=== PATIENT | female | born 1965 | race Caucasian/White ===

== ENCOUNTER → 2024-01-07 | Outpatient (CLI) | payer BC ==
[~2024-01-07] MED LIST: ACET-897 PO; ACET1TAB55 PO; ACET500P3 PO; ADV250INH INH; ASPI-527 PO; ASPI325T PO; BAYECHW PO; CALC600T62 PO; CELE20TA PO; CIPR-249 PO; DEXA2TA PO; DEXA4TA PO; FLUC10TA PO; LEVO50TA5 PO; PAXI40TA12 PO; PROT1TAB2 PO; QUET1TAB17 PO; SPIR1CAP INH; SPIRIVA INH; TIOTROPIUM; TOPA50TA PO; TRAZ-186 PO; TREL1AER PO; WELL150T PO; WELLTAB40 PO; XANA0.25 PO
== END ==
LOC: M ONCR 08:38
PROVIDERS: ATTEND General Practice
DX: C79.31 Secondary malignant neoplasm of brain (principal); F17.210 Nicotine dependence, cigarettes, uncomplicated; Z90.710 Acquired absence of both cervix and uterus; Z80.1 Family history of malignant neoplasm of trachea, bronchus and lung; Z79.01 Long term (current) use of anticoagulants; Z79.899 Other long term (current) drug therapy

== ENCOUNTER 2024-01-10 18:35 | Emergency (ER) | payer BC ==
[~2024-01-10] VITALS: Ht 165.1 cm; Wt 74.3 kg
[~2024-01-10 18:35] MED LIST changes: -DEXA2TA PO; -FLUC10TA PO; -QUET1TAB17 PO; -TRAZ-186 PO
[2024-01-10 19:19] LABS: BASO % 0.1 % (0.0-1.0); EOS % 0.1 % (0.0-3.0); HEMATOCRIT 49.7 % (36.0-47.0); HEMOGLOBIN 16.8 g/dl (12.0-15.5); LYMPH # 1.8 10^3/uL (1.5-5.0); LYMPH % 9.3 % (24.0-44.0); MEAN CORPUSCULAR HEMOGLOBIN 31.5 pg (27.0-33.0); MEAN CORPUSCULAR HGB CONC 33.8 g/dl (32.0-36.5); MEAN CORPUSCULAR VOLUME 93.1 fl (80.0-96.0); MONO # 1.2 10^3/uL (0.0-0.8); MONO % 6.6 % (2.0-8.0); NEUTROPHILS # 15.7 10^3/uL (1.5-8.5); NEUTROPHILS % 82.9 % (36.0-66.0); PLATELET COUNT, AUTOMATED 459 10^3/uL (150-450); RED BLOOD COUNT 5.34 10^6/uL (4.00-5.40); WHITE BLOOD COUNT 18.9 10^3/uL (4.0-10.0)
[2024-01-10] MEDS: diphenhydrAMINE 50MG/ML VIAL IV ONE (19:30)
[2024-01-10 19:44] LABS: ALBUMIN 3.6 G/DL (3.2-5.2); ALKALINE PHOSPHATASE 121 U/L (46-116); ALT/SGPT 28 U/L (7.0-40); AST/SGOT 22 U/L (<34); BILIRUBIN,DIRECT 0.1 MG/DL (<0.4); BILIRUBIN,TOTAL 0.4 MG/DL (0.3-1.2); BLOOD UREA NITROGEN 13 MG/DL (9-23); CALCIUM LEVEL 9.5 MG/DL (8.3-10.6); CARBON DIOXIDE LEVEL 26 MMOL/L (20-31); CHLORIDE LEVEL 98 MMOL/L (98-107); GLOMERULAR FILTRATION RATE > 60.0 (>45); GLUCOSE, FASTING 114 MG/DL (74-106); POTASSIUM SERUM 4.4 MMOL/L (3.5-5.1); SODIUM LEVEL 132 MMOL/L (136-145); TOTAL PROTEIN 6.8 G/DL (5.7-8.2)
[2024-01-10] MEDS: ACETAMINOPHEN *IV* 1,000 MG in IV 1 EA IV ONE (19:49)
[2024-01-10] MEDS: METOCLOPRAMIDE INJ 10MG/2ML VIAL IV ONE (19:49)
[2024-01-10] MEDS: NS 1,000 ML IV ONE (19:49)
[2024-01-10] MEDS ORDERED: ISOVUE-370 76% 100ML VIAL As Ordered ONE (19:51)
[2024-01-10 20:15] LABS: CK-MB VALUE MASS 7.6 NG/ML (<3.6)
[2024-01-10 20:17] VITALS: BP 164/111
[2024-01-10] MEDS: METOPROLOL 5 MG/5 ML VIAL IV PRN (20:17)
[2024-01-10] MEDS: METOPROLOL TART 25 MG TABLET PO ONE (20:17)
[2024-01-10 20:21] LABS: CPK CREATINE PHOSPHOKINASE 66 U/L (34-145); MB/CK RELATIVE INDEX 11.51 (< OR =4)
[2024-01-10 20:24] LABS: PROCALCITONIN <0.04 ng/ml
[2024-01-10 21:51] LABS: CK-MB VALUE MASS 7.3 NG/ML (<3.6)
[2024-01-10 21:52] LABS: MB/CK RELATIVE INDEX 11.77 (< OR =4)
[2024-01-10] MEDS ORDERED: HEPARIN DRIP 25,000 UNITS in IV 1 EA IV SCH (22:25)
[2024-01-10] MEDS ORDERED: HEPARIN SOD (PORCINE) 5000UNITS/ML 1ML VIAL/SYRINGE IV PRN (22:25)
[2024-01-10] MEDS: ONDANSETRON 4MG 2ML VIAL IV ONE (22:36)
[2024-01-10] MEDS: HEPARIN SOD (PORCINE) 5000UNITS/ML 1ML VIAL/SYRINGE IV ONE (22:44)
[2024-01-10] MEDS: MAALOX 30 ML SUSP *UDC PO ONE (22:49)
[2024-01-10] MEDS: HEPARIN DRIP 25,000 UNITS in IV 1 EA IV SCH (23:29)
[2024-01-11 07:05] VITALS: BP 151/77; TEMP 97.4; O2SAT 92
[2024-01-13] MEDS ORDERED: TRAZ-186 PO (15:22)
== END 2024-01-11 07:31 | disposition short-term general hospital (02) ==
LOC: EDBD 18:35 → M ED 18:35
DX: I21.4 Non-ST elevation (NSTEMI) myocardial infarction (principal); I48.91 Unspecified atrial fibrillation; J44.9 Chronic obstructive pulmonary disease, unspecified; K21.9 Gastro-esophageal reflux disease without esophagitis; C34.90 Malignant neoplasm of unspecified part of unspecified bronchus or lung; C79.31 Secondary malignant neoplasm of brain; F17.210 Nicotine dependence, cigarettes, uncomplicated; F12.10 Cannabis abuse, uncomplicated; Z79.1 Long term (current) use of non-steroidal anti-inflammatories (NSAID); Z79.899 Other long term (current) drug therapy
CPT/HCPCS: 70450; 71260; 74177; 80048; 80076; 82140; 82550; 82553; 83605; 84145; 84484; 85025; 85730; 93005; 93041; 94760; 96365; 96366; 96374; 96375; 99285; J0131; J1100; J1200; J2405; J2765; Q9967

== ENCOUNTER 2024-01-21 14:37 | Outpatient (RCR) | payer BC ==
[~2024-01-21 14:37] MED LIST changes: +DEXA2TA PO; +TRAZ-186 PO
[2024-01-28] MEDS ORDERED: FLUC10TA PO (14:18)
[2024-02-07] MEDS ORDERED: QUET1TAB17 PO (08:26)
== END 2024-02-02 ==
LOC: M ONCR 14:37
PROVIDERS: ATTEND General Practice
DX: Z51.0 Encounter for antineoplastic radiation therapy (principal); C79.31 Secondary malignant neoplasm of brain